=== PATIENT | female | born 1985 | race African-American/Black ===

== ENCOUNTER 2019-06-24 07:10 | Emergency (ER) | payer MEDICAID, OTHER ==
[~2019-06-24] VITALS: Ht 162.6 cm; Wt 65.8 kg
[2019-06-24 07:15] VITALS: BP 131/99
== END 2019-06-24 07:54 | disposition home or self-care (01) ==
LOC: ER 07:10
DX: J20.9 Acute bronchitis, unspecified (principal); F17.210 Nicotine dependence, cigarettes, uncomplicated

== ENCOUNTER 2019-10-26 22:20 | Emergency (ER) | payer MEDICAID ==
[~2019-10-26] VITALS: Ht 162.6 cm; Wt 72.8 kg
[2019-10-26 22:50] VITALS: BP 103/79
[2019-10-26 23:25] LABS: Basophils # (auto) 0.1 10 ^3/uL (0-0.2); Basophils % (auto) 0.6 % (0.0-2.0); Eosinophils # (auto) 0.3 10 ^3/uL (0-0.8); Eosinophils % (auto) 3.1 % (0.0-7.0); Hematocrit 42.8 % (36.0-46.0); Hemoglobin 14.5 g/dL (12.2-16.2); Lymphocytes # (auto) 4.4 10 ^3/uL (0.4-5.4); Lymphocytes % (auto) 45.5 % (10.0-50.0); Mean Corpuscular Hemoglobin 33.4 pg (28.0-32.0); Mean Corpuscular Hgb Conc. 33.8 g/dL (32.0-36.0); Mean Corpuscular Volume 98.9 fL (80.0-100.0); Monocytes # (auto) 0.7 10 ^3/uL (0-1.3); Monocytes % (auto) 7.6 % (0.0-12.0); Neutrophils # (auto) 4.2 10 ^3/uL (1.6-8.6); Neutrophils % (auto) 43.2 % (37.0-80.0); Nucleated Red Blood Cells % 0.1 %; Platelet Count (auto) 322 10^3/uL (140-450); Red Blood Cells 4.33 10^6/uL (4.0-5.20); Red Cell Distribution Width 11.8 % (11.8-14.3); White Blood Cell 9.7 10^3/uL (4.4-10.8)
[2019-10-26 23:41] LABS: Partial Thromboplastin Time 27.3 sec (23.64-32.05)
[2019-10-26 23:43] LABS: Albumin 4.2 g/dL (3.4-5.0); BUN/Creatinine Ratio 17.2; Calcium 9.2 mg/dL (8.5-10.1); Potassium 3.7 mmol/L (3.5-5.1)
[2019-10-26 23:52] LABS: Bilirubin, Total 0.2 mg/dL (0.2-1.0); Total Protein 8.2 g/dL (6.4-8.2)
== END 2019-10-26 23:30 | disposition home or self-care (01) ==
LOC: ER 22:20
DX: N93.9 Abnormal uterine and vaginal bleeding, unspecified (principal); F17.210 Nicotine dependence, cigarettes, uncomplicated
CPT/HCPCS: 36415; 80053; 84702; 85025; 85610; 85730; 86850; 86900; 86901

== ENCOUNTER 2020-12-06 15:01 | Emergency (ER) | payer MEDICAID, OTHER ==
[~2020-12-06] VITALS: Ht 162.6 cm; Wt 74.8 kg
[2020-12-06 16:55] VITALS: BP 130/98
[2020-12-06] MEDS ORDERED: LIDOCAINE 1% HCL (LOCAL ANESTH.) INJ 20ML MDV ONE (17:12)
[2020-12-06] MEDS ORDERED: ONDANSETRON ODT 4 MG TAB PO ONE (17:15)
== END 2020-12-06 17:56 | disposition home or self-care (01) ==
LOC: ER 15:01
DX: S61.411A Laceration without foreign body of right hand, initial encounter (principal); F17.210 Nicotine dependence, cigarettes, uncomplicated; W26.8XXA Contact with other sharp object(s), not elsewhere classified, initial encounter; Y93.89 Activity, other specified; Y92.89 Other specified places as the place of occurrence of the external cause; Y99.8 Other external cause status
CPT/HCPCS: 12001; 99283; J2001; Q0162

== ENCOUNTER 2021-11-20 09:19 | Emergency (ER) | payer BC, OTHER ==
[~2021-11-20] VITALS: Ht 162.6 cm; Wt 72.6 kg
[2021-11-20 10:26] VITALS: BP 138/64
[2021-11-20] MEDS ORDERED: IBUP800T27 PO (10:45)
[2021-11-20] MEDS ORDERED: KETOROLAC TROMETH 60MG/2ML VIAL IM ONE (10:45)
== END 2021-11-20 11:06 | disposition home or self-care (01) ==
LOC: ER 09:19
DX: S46.911A Strain of unspecified muscle, fascia and tendon at shoulder and upper arm level, right arm, initial encounter (principal); S16.1XXA Strain of muscle, fascia and tendon at neck level, initial encounter; X58.XXXA Exposure to other specified factors, initial encounter; Y93.64 Activity, baseball; Y92.89 Other specified places as the place of occurrence of the external cause; Y99.8 Other external cause status
CPT/HCPCS: 72040; 73030; 81025; 96372; 99284; J1885

== ENCOUNTER 2022-02-14 21:23 | Emergency (ER) | payer BC, OTHER ==
[~2022-02-14 21:23] MED LIST: IBUP800T27 PO
== END 2022-02-14 23:39 | disposition left against medical advice (07) ==
LOC: ER 21:23
DX: M25.532 Pain in left wrist (principal); Z53.21 Procedure and treatment not carried out due to patient leaving prior to being seen by health care provider

== ENCOUNTER 2022-12-03 20:11 | Emergency (ER) | payer BC ==
[~2022-12-03] VITALS: Ht 157.5 cm; Wt 50.0 kg
[~2022-12-03 20:11] MED LIST changes: +IBUP-1456 PO; -IBUP800T27 PO
[2022-12-03 20:38] VITALS: BP 140/82
== END 2022-12-03 21:13 | disposition home or self-care (01) ==
LOC: EDBD 20:11 → ER 20:20
DX: S51.812A Laceration without foreign body of left forearm, initial encounter (principal); W54.0XXA Bitten by dog, initial encounter; Y93.89 Activity, other specified; Y92.89 Other specified places as the place of occurrence of the external cause; Y99.8 Other external cause status

== ENCOUNTER 2025-01-02 23:26 | Emergency (ER) | payer BC, MEDICAID ==
[~2025-01-02] VITALS: Ht 165.1 cm; Wt 82.2 kg
[2025-01-02 23:56] VITALS: BP 154/121; PULSE 130; RESP 20; TEMP 98.6; O2SAT 96
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
[2025-01-03 02:11] LABS: Basophils # (auto) 0.1 10 ^3/uL (0-0.2); Basophils % (auto) 0.4 % (0.0-2.0); Eosinophils # (auto) 0.1 10 ^3/uL (0-0.8); Eosinophils % (auto) 0.8 % (0.0-7.0); Hematocrit 45.2 % (36.0-46.0); Hemoglobin 15.5 g/dL (12.2-16.2); Lymphocytes # (auto) 4.2 10 ^3/uL (0.4-5.4); Lymphocytes % (auto) 27.2 % (10.0-50.0); Mean Corpuscular Hemoglobin 34.5 pg (28.0-32.0); Mean Corpuscular Hgb Conc. 34.2 g/dL (32.0-36.0); Mean Corpuscular Volume 100.8 fL (80.0-100.0); Monocytes # (auto) 1.3 10 ^3/uL (0-1.3); Monocytes % (auto) 8.5 % (0.0-12.0); Neutrophils # (auto) 9.6 10 ^3/uL (1.6-8.6); Neutrophils % (auto) 63.1 % (37.0-80.0); Nucleated Red Blood Cells % 0.1 %; Platelet Count (auto) 325 10^3/uL (140-450); Red Blood Cells 4.49 10^6/uL (4.0-5.20); Red Cell Distribution Width 13.1 % (11.8-14.3); White Blood Cell 15.3 10^3/uL (4.4-10.8)
[2025-01-03 02:22] LABS: Alanine Aminotransferase 32 U/L (7-40); Albumin 4.7 g/dL (3.2-4.8); Alkaline Phosphatase 91 U/L (46-116); Anion Gap 10 (5-15); BUN/Creatinine Ratio 6.7 (10.0-20.0); Bilirubin, Total 0.5 mg/dL (0.2-1.0); Calcium 9.2 mg/dL (8.7-10.4); Carbon Dioxide 26 mmol/L (20-31); Chloride 107 mmol/L (98-107); Glucose 95 mg/dL (74-106); Potassium 4.6 mmol/L (3.5-5.1); Sodium 143 mmol/L (136-145); Total Protein 6.9 g/dL (5.7-8.2)
[2025-01-03 02:23] LABS: Aspartate Aminotransferase 38 U/L (<34); Blood Urea Nitrogen 7 mg/dL (9-23)
[2025-01-03] MEDS: KETOROLAC TROMETH 60MG/2ML VIAL IM ONE (02:50)
[2025-01-03] MEDS: HYDROcodone-ACET 5/325MG TAB PO ONE (02:52)
== END 2025-01-03 02:56 | disposition left against medical advice (07) ==
LOC: ER 23:26
DX: S12.390A Other displaced fracture of fourth cervical vertebra, initial encounter for closed fracture (principal); F10.90 Alcohol use, unspecified, uncomplicated; F41.9 Anxiety disorder, unspecified; F32.A Depression, unspecified; Z79.899 Other long term (current) drug therapy; V89.2XXA Person injured in unspecified motor-vehicle accident, traffic, initial encounter; Y93.89 Activity, other specified; Y92.488 Other paved roadways as the place of occurrence of the external cause; Y99.8 Other external cause status; Y90.9 Presence of alcohol in blood, level not specified
CPT/HCPCS: 36415; 70450; 71250; 72125; 73110; 74176; 80053; 85025; 96372; 99285; J1885